=== PATIENT | male | born 1970 | race Caucasian/White ===

== ENCOUNTER → 2018-09-08 | Outpatient (CLI) | payer OTHER ==
--- NOTE | 2018-09-08 11:28 | REP ---
Left hand series: Four views. History: Contusion. Findings: Four views of the left hand show overall normal mineralization. No fracture is visible. Joint spaces are preserved. There is minimal spurring at the DIP joint of the ring and small finger. Impression: No traumatic abnormality noted. Electronically Signed by Garret Hauser MD 09/08/2018 11:20 A
== END ==
LOC: M ADAMS 09:51
PROVIDERS: ATTEND Physician Assistant Medical
DX: S60.222A Contusion of left hand, initial encounter (principal); W18.30XA Fall on same level, unspecified, initial encounter; Y92.009 Unspecified place in unspecified non-institutional (private) residence as the place of occurrence of the external cause

== ENCOUNTER → 2019-10-09 | Outpatient (CLI) | payer OTHER | LOC: M LABSMTC 13:18 | PROVIDERS: ATTEND Family Medicine | DX: Z11.59 Encounter for screening for other viral diseases (principal) | CPT/HCPCS: C9803; U0003 ==

== ENCOUNTER → 2020-01-01 | Outpatient (CLI) | payer OTHER | LOC: M LABSMTC 10:05 | PROVIDERS: ATTEND Family Medicine | DX: Z11.59 Encounter for screening for other viral diseases (principal); Z20.828 Contact with and (suspected) exposure to other viral communicable diseases | CPT/HCPCS: C9803; U0003 ==

== ENCOUNTER → 2021-05-06 | Outpatient (REF) | LOC: M LABSMTC 09:41 | PROVIDERS: ATTEND Pediatrics | DX: Z20.822 Contact with and (suspected) exposure to COVID-19 (principal) ==

== ENCOUNTER → 2022-09-23 | Outpatient (CLI) | payer OTHER | LOC: M PLARAD 07:50 | PROVIDERS: ATTEND Orthopaedic Surgery | DX: M17.11 Unilateral primary osteoarthritis, right knee (principal); M25.461 Effusion, right knee; M22.41 Chondromalacia patellae, right knee ==

== ENCOUNTER 2023-03-30 12:53 | Emergency (ER) | payer OTHER ==
[~2023-03-30] VITALS: Ht 182.9 cm; Wt 120.2 kg
[2023-03-30 16:30] VITALS: BP 142/92; TEMP 97.8; O2SAT 99
== END 2023-03-30 16:33 | disposition home or self-care (01) ==
LOC: M ED 12:53
DX: S96.912A Strain of unspecified muscle and tendon at ankle and foot level, left foot, initial encounter (principal); W18.42XA Slipping, tripping and stumbling without falling due to stepping into hole or opening, initial encounter; Y92.9 Unspecified place or not applicable; Y93.H2 Activity, gardening and landscaping; Y99.9 Unspecified external cause status

== ENCOUNTER 2023-09-22 08:09 | Emergency (ER) | payer OTHER ==
[~2023-09-22] VITALS: Ht 182.9 cm; Wt 118.2 kg
[2023-09-22] MEDS ORDERED: METF10004 PO (08:32)
[2023-09-22] MEDS ORDERED: MELO15TA28 PO (08:32)
[2023-09-22 08:43] LABS: ABG BASE EXCESS -1.7 (-2.0-2.0); ABG HCO3 20.3 MMOL/L (22.0-26.0); ABG O2 SATURATION 98.3 % (95.0-99.0); ABG PARTIAL PRESSURE CO2 28.4 mmHg (35.0-45.0); ABG PARTIAL PRESSURE O2 99.9 mmHg (75.0-100.0); ABG STANDARD HCO3 23.1 MMOL/L. (22.0-26.0); ABG TOTAL CO2 21.1 MMOL/L (22.0-29.0); ABG pH (ARTERIAL) 7.471 UNITS (7.350-7.450)
[2023-09-22 08:47] LABS: BASO # 0.1 10^3/uL (0.0-0.2); BASO % 1.1 % (0.0-1.0); EOS # 0.1 10^3/uL (0.0-0.5); EOS % 1.7 % (0.0-3.0); HEMOGLOBIN 17.2 g/dl (13.5-17.5); LYMPH # 3.2 10^3/uL (1.5-5.0); LYMPH % 42.4 % (24.0-44.0); MEAN CORPUSCULAR HGB CONC 35.1 g/dl (32.0-36.5); MEAN CORPUSCULAR VOLUME 88.3 fl (80.0-96.0); MONO # 0.7 10^3/uL (0.0-0.8); MONO % 8.8 % (2.0-8.0); NEUTROPHILS # 3.5 10^3/uL (1.5-8.5); NEUTROPHILS % 45.6 % (36.0-66.0); PLATELET COUNT, AUTOMATED 328 10^3/uL (150-450); RED BLOOD COUNT 5.55 10^6/uL (4.30-6.10); WHITE BLOOD COUNT 7.6 10^3/uL (4.0-10.0)
[2023-09-22 09:15] LABS: ALBUMIN 4.2 G/DL (3.2-5.2); ALKALINE PHOSPHATASE 74 U/L (46-116); ALT/SGPT 32 U/L (7.0-40); AST/SGOT 18 U/L (<34); BILIRUBIN,DIRECT 0.1 MG/DL (<0.4); BILIRUBIN,TOTAL 0.4 MG/DL (0.3-1.2); BLOOD UREA NITROGEN 12 MG/DL (9-23); CALCIUM LEVEL 10.2 MG/DL (8.5-10.1); CARBON DIOXIDE LEVEL 25 MMOL/L (20-31); CHLORIDE LEVEL 102 MMOL/L (98-107); CREATININE FOR GFR 0.79 MG/DL (0.70-1.30); GLOMERULAR FILTRATION RATE > 60.0 (>56); GLUCOSE, FASTING 159 MG/DL (60-100); POTASSIUM SERUM 4.4 MMOL/L (3.5-5.1); SODIUM LEVEL 135 MMOL/L (136-145); TOTAL PROTEIN 7.5 G/DL (5.7-8.2)
[2023-09-22 09:18] LABS: THYROID STIMULATING HORMONE 1.873 uIU/ML (0.55-4.78)
[2023-09-22 09:19] LABS: CPK CREATINE PHOSPHOKINASE 116 U/L (46-171); MB/CK RELATIVE INDEX 0.86 (< OR =4)
[2023-09-22] MEDS: ONDANSETRON 4MG ORAL DISINTEGRATING TAB PO ONE (09:31)
[2023-09-22 10:13] LABS: CK-MB VALUE MASS < 1.0 NG/ML (<3.6)
[2023-09-22 10:21] LABS: CPK CREATINE PHOSPHOKINASE 124 U/L (46-171)
[2023-09-22 10:42] VITALS: O2SAT 94
[2023-09-22] MEDS ORDERED: VITA200012 PO (11:29)
[2023-09-22] MEDS ORDERED: ROSU40TA4 PO (11:29)
[2023-09-22] MEDS ORDERED: METF-838 PO (11:29)
[2023-09-22] MEDS ORDERED: TRAM50TA2 PO (11:29)
[2023-09-22 11:30] VITALS: BP 136/84
[2023-09-22] MEDS ORDERED: HOME MED LIST COMPLETE! XX SCH (11:30)
[2023-09-22 11:31] VITALS: TEMP 97.9; O2SAT 95
== END 2023-09-22 11:39 | disposition home or self-care (01) ==
LOC: M ED 08:09
DX: J68.9 Unspecified respiratory condition due to chemicals, gases, fumes and vapors (principal); R73.09 Other abnormal glucose